=== PATIENT | male | born 1985 | race Caucasian/White ===

== ENCOUNTER 2020-07-16 20:38 | Emergency (ER) | payer BC ==
[~2020-07-16 20:38] MED LIST: NAPROSYN500 MG PO; NORCO 5-325 TA1 EACH PO
== END 2020-07-17 00:48 | disposition left against medical advice (07) ==
LOC: ER1 20:38
DX: R07.9 Chest pain, unspecified (principal); R06.02 Shortness of breath; Z53.21 Procedure and treatment not carried out due to patient leaving prior to being seen by health care provider
CPT/HCPCS: 93005